=== PATIENT | female | born 1980 | race Caucasian/White ===

== ENCOUNTER 2020-08-18 16:26 | Emergency (ER) | payer OTHER, SELFPAY ==
[2020-08-18 16:54] VITALS: BP 117/61; PULSE 60; O2SAT 100; BMI 26.7
[2020-08-18] MEDS: Ibuprofen 800 MG TABLET PO (17:06)
[2020-08-18] MEDS: Morphine Sulfate 2 MG/ML CARTRIDGE IVPUSH (17:06)
[2020-08-18] MEDS: Diphth,Pertus(ACell),Tet Adult 0.5 ML SYRINGE IM (17:18)
[2020-08-18] MEDS: Ketorolac Tromethamine 30 MG/ML VIAL IVPUSH (17:25)
[2020-08-18] MEDS: ondansetron HCL 4 MG/2 ML VIAL IVPUSH (17:25)
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
[2020-08-18 18:27] VITALS: RESP 18; O2SAT 99
[2020-08-18 19:14] VITALS: BP 115/67; PULSE 60; RESP 16; TEMP 36.9; O2SAT 99
[2020-08-18] MEDS: oxyCODONE HCl Immed Release 5 MG TABLET PO (20:06)
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
== END 2020-08-18 20:25 | disposition home or self-care (01) ==
PROVIDERS: Emergency Provider Emergency Medicine Emergency Medical Services
DX: T23.271A Burn of second degree of right wrist, initial encounter (principal); T31.0 Burns involving less than 10% of body surface; X10.2XXA Contact with fats and cooking oils, initial encounter; Y93.G3 Activity, cooking and baking; Y92.010 Kitchen of single-family (private) house as the place of occurrence of the external cause; Y99.9 Unspecified external cause status
CPT/HCPCS: 16025; 90471; 90715; 96374; 96375; 99285; J1885; J2270; J2405

== ENCOUNTER 2020-09-09 07:57 | Outpatient (RCR) | payer OTHER, SELFPAY | END 2020-09-22 15:06 | disposition home or self-care (01) | LOC: HO.WCC 07:57 | PROVIDERS: Visit Provider Surgery | DX: T22.111D Burn of first degree of right forearm, subsequent encounter (principal) | CPT/HCPCS: 99211 ==